=== PATIENT | female | born 1985 | race African-American/Black ===

== ENCOUNTER 2022-05-12 16:06 | Emergency (ER) | payer MEDICAID, OTHER ==
[~2022-05-12] VITALS: Ht 162.6 cm; Wt 66.0 kg
[2022-05-12 16:09] VITALS: BP 158/79
== END 2022-05-12 17:47 | disposition home or self-care (01) ==
LOC: ER 16:06
DX: I10 Essential (primary) hypertension (principal); Z98.890 Other specified postprocedural states
CPT/HCPCS: 99281